=== PATIENT | female | born 1975 | race Hispanic/Latino ===

== ENCOUNTER 2017-01-05 15:06 | Observation (INO) | payer OTHER ==
[2017-01-05] VITALS (7 sets, daily range): BP systolic 103–136; BP diastolic 69–86; PULSE 100–131; RESP 9–22; O2SAT 99–100
[~2017-01-05] VITALS: Ht 165.1 cm; Wt 61.6 kg
[~2017-01-05 15:06] MED LIST: OMEP-113 PO
--- NOTE | 2017-01-05 15:36 | ED.REPORT ---
HPI-General Illness Date of Service January 05, 2017 ED Provider: Bert Landis MD Patient is a 41 year old female with a hx of depression and fibromyalgia who presents to the ED complaining of midline and left constant chest pain onset 5 days ago. Her pain is worse with inspiration. Associated symptoms include dry mouth. She denies nausea, vomiting, diaphoresis, shortness of breath, extremity pain, or any other symptoms. She has had intermittent chest pains for the past 5 months. Her pain started to get worse 5 days ago after an emotional event. She denies any recent surgeries or long periods of immobility. She has a stress test scheduled for tomorrow ordered by Dr. English. She is on naproxen (once every 10 days for pain), amitriptyline, and citalopram. Nursing Notes Stated Complaint: CHEST PAINS X 5 DAYS Chief Complaint: Dysrhythmia/Cardiac Nursing Notes Reviewed: Yes Allergies: Coded Allergies: No Known Allergies (Verified Allergy, Unknown, 01/05/17) Scheduled Alprazolam (Alprazolam) 0.25 Mg Tablet 0.25 MG PO HS Amitriptyline (Amitriptyline) 25 Mg Tab 25 MG PO HS Escitalopram Oxalate (Escitalopram Oxalate) 10 Mg Tablet 10 MG PO DAILY General Time Seen by MD: 15:35 Chief Complaint Chest pain Hx Obtained From: Patient, Medical Pathologist Arrived By: Walk-in Onset Occurred: 5 days ago Symptom Duration: Since onset Past Medical History Past Medical History Fibromyalgia Reports: Depression Past Surgical History T&A C-spine disc replacement Reports: , Hysterectomy Smoking History Current Every Day Smoker Ambulatory Status Independent Review of Systems + dry mouth Full Review of Systems Respiratory: Denies: Shortness of breath Cardiovascular: Reports: Chest pain GI: Denies: Nausea, Vomiting Musculoskeletal: Denies: Extremity pain Skin: Denies Diaphoresis Complete sys rev & neg: except as marked. Physical Exam Vital Signs Vital Signs Date Time Temp Pulse Resp B/P Pulse Ox O2 Delivery O2 Flow Rate FiO2 01/05/17 17:51 103 17 121/71 100 Nasal Cannula 2 01/05/17 16:55 119 9 136/77 100 Nasal Cannula 2 01/05/17 16:14 117 10 133/86 100 Nasal Cannula 2 01/05/17 15:10 36.3 131 21 120/76 99 Room Air Initial VS: Reviewed General/Constitutional: Well-developed, Well-nourished Head / Eyes: Atraumatic, Normocephalic Neck: Full range of motion Skin: Warm, Dry Neurologic: Alert, Oriented, Nonfocal Psychiatric: Mood/affect normal, Behavior normal, Normal thought content Mouth: Positive: Mucous membranes dry Respiratory / Chest: Breath sounds NL, Breath sounds = bilat, No respiratory distress reproducible tenderness about L anterior chest wall Cardiovascular: Heart sounds NL, No gallop, No murmurs, No rubs, Peripheral circulation NL Heart Rate / Rhythm: Positive: Tachycardia Abdomen: Soft, Non-tender, No distention Lower Extremity / Pelvis / MS: No swelling, Non-tender Interpretation & Diagnostics Lab Results Interpretation Result Diagram: 01/05/17 1530 01/05/17 1530 Test 01/05/17 15:30 White Blood Count 5.6th/mm3 (3.8-10.1) Red Blood Count 4.63mil/mm3 (3.90-5.20) Hemoglobin 14.2g/dL (12.0-15.6) Hematocrit 41.9% (35.0-46.0) Mean Corpuscular Volume 90.5fL (81-100) Mean Corpuscular Hemoglobin 30.7pg (27.0-35.0) Mean Corpuscular Hemoglobin Concent 33.9% (32.0-37.0) Red Cell Distribution Width 12.5% (12.3-15.4) Platelet Count 182bil/L (150-400) Neutrophils (%) (Auto) 61.2% (40-74) Lymphocytes (%) (Auto) 27.1% (14-46) Monocytes (%) (Auto) 10.8% (4-12) Eosinophils (%) (Auto) 0.7% (0-5) Basophils (%) (Auto) 0.2% (0-3) D-Dimer < 0.50mg/L FEU (<0.50) Sodium Level 135mEq/L (134-144) Potassium Level 3.9mEq/L (3.5-5.2) Chloride Level 99mEq/L (97-108) Carbon Dioxide Level 22mmol/L (18-29) Blood Urea Nitrogen 9mg/dL (6-24) Creatinine 0.68mg/dL (0.57-1.00) Estimat Glomerular Filtration Rate 135mL/min (>59) Glucose Level 103mg/dL (60-99) Calcium Level 9.0mg/dL (8.5-10.1) Magnesium Level 2.2mg/dL (1.6-2.6) Total Bilirubin 0.3mg/dL (0.0-1.2) Aspartate Amino Transf (AST/SGOT) 21U/L (0-50) Alanine Aminotransferase (ALT/SGPT) 26U/L (0-32) Alkaline Phosphatase 78U/L (25-150) Total Protein 8.4g/dL (6.4-8.4) Albumin 4.4g/dL (3.4-5.0) Human Chorionic Gonadotropin, Qual Negative (Negative) Hold Caldwell Top Tube Received (Received) ECG Interpretation ECG Interpretation: Sinus tachy rate 116 normal axis and interval no ST, T changes no prior available for comparison Time: 15:35 Interpreted by: ED physician X-Ray Chest Interpretation Chest Xray Interpretation: IMPRESSION: No acute disease Dictated by: Jose E Samuel M.D. on 01/05/2017 at 16:03 Approved by: Jose E Samuel M.D. on 01/05/2017 at 16:06 View: Portable, 1 view Interpretation / Wet Read by: Interpret - Radiologist Re-Eval/Medical Decision Med Decision/Clinical Course Patient is a 41 year old female with a hx of depression and fibromyalgia who presents to the ED complaining of midline and left constant chest pain onset 5 days ago. Her pain is worse with inspiration. Associated symptoms include dry mouth. She denies nausea, vomiting, diaphoresis, shortness of breath, extremity pain, or any other symptoms. She has had intermittent chest pains for the past 5 months. Her pain started to get worse 5 days ago after an emotional event. She denies any recent surgeries or long periods of immobility. She has a stress test scheduled for tomorrow ordered by Dr. English. She is on naproxen (once every 10 days for pain), amitriptyline, and citalopram. Upon arrival the patient is afebrile, hemodynamically stable and in no apparent distress. 324 mg of aspirin were given. EKG was obtained and interpreted by myself as documented above. Of note the patient had sinus tachycardia at a rate of 116 bpm though there were no acute ischemic changes present. CXR: Obtained, reviewed and interpreted by myself shows no evidence of infiltrates, effusions or pneumothorax. Cardiac and mediastinal silhouette normal. No bony or soft tissue abnormalities. Laboratory studies obtained as below: CBC unremarkable CMP unremarkable Troponin negative D-dimer negative Event that the patient's primary care physician recently ordered a stress test I opted to contact her PCP to discuss further. I spoke with the on-call physician Dr. Bourgeois and we reviewed the workup and presentation thus far. While my suspicion for acute coronary syndrome in this patient is relatively low the patient's primary care doctor would like him admitted to expedite stress test and definitively rule out acute coronary syndrome. Patient was discussed with admitting hospitalist and transferred in stable condition. Time of Eval: 17:30 Re-Evaluation/Progress Note: Discussed plan for admission. Patient understands and agrees with plan. All questions addressed at this time. Consultation #1: Referral / Consult Name: Ildefonso De Jesus MD Call Returned at: 17:26 Tire Cord Weaver: Agrees with eval, Agrees with plan Note: Discussed pt's case with Dr. De Jesus station inspector for Dr. English. Suggests admit. Consultation #2: Referral / Consult Name: Mau Jon DO Consulted With: Hospitalist Call Returned at: 18:02 Tire Cord Weaver: Will see patient, Agrees with eval, Agrees with plan, Accepts admit Note: Discussed pt. case. Accepts admit Counseled Regarding: Diagnosis, Lab results, Need for admission Discharge & Departure Primary Impression: Chest pain Chest pain type: unspecified Qualified Code: R07.9 - Chest pain, unspecified Additional Impressions: Fibromyalgia Anxiety Disposition: ADMITTED TO HOSPITAL Referrals: Erika English MD (PCP) Scribe Attestation Portions of this note were transcribed by Latonia Smith. I, Dr. Landis personally performed the history, physical exam and medical decision-making; I reviewed and confirmed the accuracy of the information in the transcribed note. Signed by: Latonia Smith 01/05/17, 7861 copies to: Erika English MD, Beck O MD January 05, 2017 15:36 LATONIA SMITH January 05, 2017 15:37
[2017-01-05] MEDS ORDERED: AMT25T PO (15:37)
[2017-01-05] MEDS ORDERED: ALPR0.254 PO (15:37)
[2017-01-05] MEDS ORDERED: ESCI10TA52 PO (15:37)
[2017-01-05 15:38] LABS: BASOPHILS % (AUTO) 0.2 % (0-3); EOSINOPHILS % (AUTO) 0.7 % (0-5); MONOCYTES % (AUTO) 10.8 % (4-12); Mean Corpuscular Hemoglobin 30.7 pg (27.0-35.0); Mean Corpuscular Volume 90.5 fL (81-100); NEUTROPHILS % (AUTO) 61.2 % (40-74); Platelet Count 182 bil/L (150-400)
--- NOTE | 2017-01-05 16:07 | DRSVH ---
PROCEDURE: X-RAY CHEST ONE VIEW, PORTABLE ([id number]) INDICATIONS: CP TECHNIQUE: One view of the chest was acquired. COMPARISON: None. FINDINGS: Surgical changes and devices: None. Lungs and pleura: No pleural effusions or pneumothorax. Lungs are clear. Mediastinum: Mediastinal contours appear normal. Heart size is normal. Bones and chest wall: No suspicious bony lesions. Overlying soft tissues appear unremarkable. IMPRESSION: No acute disease Dictated by: Jose E Samuel M.D. on 01/05/2017 at 16:03 Approved by: Jose E Samuel M.D. on 01/05/2017 at 16:06
[2017-01-05 16:15] LABS: Magnesium 2.2 mg/dL (1.6-2.6); TROPONIN T < 0.010 ug/L (0.0-0.011)
[2017-01-05] MEDS ORDERED: 0.9% Sodium Chloride 1,000 ML IV ONE ×2 (16:55→17:10)
[2017-01-05] MEDS ORDERED: 0.9% Sodium Chloride 1,000 ML IV SCH (18:03)
[2017-01-05] MEDS ORDERED: Ondansetron 2 mg/mL 2 mL Inj IVPUSH PRN ×2 (18:05)
[2017-01-05] MEDS ORDERED: Alum-Mag Hydrox-Simeth 30 mL Suspension PO PRN ×2 (18:05)
[2017-01-05] MEDS ORDERED: Polyethylene Glycol (PEG) 17 Gm Powder PO PRN (18:05)
--- NOTE | 2017-01-05 18:50 | PCM.HPMED ---
Subjective Date of Service January 05, 2017 Primary Provider: Admitting Physician: Mau Jon DO Primary Care Physician: Erika English MD Attending Physician: Mau Jon DO Chief Complaint: Persistent chest pain History of Present Illness: Patient is a 41-year-old female past medical history significant for mood disorder anxiety and depressive components in addition to possible fibromyalgia presenting to the ER today for left-sided chest pain of approximately 5 day duration. Lesion first began experiencing chest pain around August of last year and notes it is coming on intermittently but over the last 5 days it is been more severe and more persistent. she notes emotional feelings including stress are generally exacerbating, denies any exertional component. Neither any recent fever chills. He also denies shortness of breath. As any dizziness or lightheadedness associated with the chest pains. Chest pain is severe and sharp in nature but not radiating. Takes a few medications for mood but denies any other active medication prescriptions. Her only additional complaint at this time is a dry mouth. Note appetite has been good she is eating and drinking normally. Endorses normal bowel and bladder function though she did note an episode of polyuria couple of weeks prior, resolved spontaneously. Denies any history of pain with urination however. When seen in ER she was provided sublingual nitroglycerin in addition to other when necessary medications for pain including aspirin which were not effective in controlling pain. EKG was unremarkable and there are no other significant findings noted on laboratory evaluation. She has been followed in the outpatient setting by her primary care doctor, Dr. English, she had been scheduled an outpatient stress test tomorrow. Given severity of chest pain felt she needed to present to ER sooner. Review of Systems: 10 point review of systems was conducted and entirely negative excepting pertinent positives and negatives included in above history of present illness Allergies Coded Allergies: No Known Allergies (Verified Allergy, Unknown, 01/05/17) Home Medications Alprazolam (Alprazolam) 0.25 Mg Tablet 0.25 MG PO HS Amitriptyline (Amitriptyline) 25 Mg Tab 25 MG PO HS Escitalopram Oxalate (Escitalopram Oxalate) 10 Mg Tablet 10 MG PO DAILY PMH Anxiety Fibromyalgia Depression Surgical History T&A Sinus surgery C-spine disc replacement Hysterectomy Family History Patient notes mother does have some history of cardiac disease, she is unclear what the diagnosis is She knows her mother sometimes has an elevated pulse and needs to get EKGs every couple of months. Also notes mother and father have high blood pressure Social History Hx Alcohol Use: No Hx Substance Use: No Smoking Status: Current Every Day Smoker Exam Vital Signs Vital Sign - Last Date Time Temp Pulse Resp B/P Pulse Ox O2 Delivery O2 Flow Rate FiO2 01/05/17 17:51 103 17 121/71 100 Nasal Cannula 2 01/05/17 15:10 36.3 General: Alert, Oriented X3, Cooperative, Mild Distress, Other (anxious) Eyes: PERRLA, EOMI Mouth: Mucous Membr Moist/Oran Neck: Supple, No Thyromegaly Chest & Lungs: Clear to auscultation & percussion, Other (no pain noted on palpation of chest wall) Cardiovascular: Other (there is no elevated rate with a regular rhythm. No murmurs rubs or gallops) Abdomen: Non-tender, Non-distended Extremities: No cyanosis/clubbing/edma bilat Neurological: Grossly Neurologically Intact Lab and Diagnostics Result Diagram: 01/05/17 1530 01/05/17 1530 Assessment & Plan A 41-year-old female past medical history significant for anxiety spectrum disorder in addition to depression presenting to ER for persistent chest pain and placed on observation for further evaluation 1. Chest pain observation - Given lack of risk factors excepting smoking, in addition to patient's age and normal EKG conjunction with negative troponin values thus far, it seems unlikely that patient suffered from acute coronary syndrome. - Nonetheless given location of pain in severity further evaluation is needed to rule out possible coronary involvement. Patient's persistent tachycardia as well as concern - Patient will be observed on continuous telemetry - When necessary medications will be provided for pain - Complete echocardiogram and exercise stress test are ordered for a.m. - In addition we will continue to trend troponin values 2. Mood disorder - There may be an emotional component to patient's chest pain, especially given history that emotional stress appears to be a triggering factor. - We will continue patient's home medications at this time with amitriptyline, SSRI, benzodiazepine when necessary - Would recommend continued outpatient therapy for further evaluation and treatment is disease. 3. Tachycardia - As noted in problem 1 will monitor and continuous on treating continue cardiac evaluation -There may well be an emotional component to this given patient's high level of stress, though we first should rule out underlying condition before assuming - Negative d-dimer and normal oxygen saturation is reassuring, and essentially rules out pulmonary embolus. Pain Evaluation: Adequate Pain Control GI Prophylaxis: Not indicated VTE Mechanical Devices: Intermittant Pneumatic CD Resuscitation Status: CPR: Attempt Resuscitation Time spent 50 minutes Mau Jon DO January 05, 2017 18:50
[2017-01-05] MEDS ORDERED: LORazepam 1 mg Tablet PO PRN (19:00)
[2017-01-05 19:10] LABS: TROPONIN T < 0.010 ug/L (0.0-0.011)
--- NOTE | 2017-01-05 19:19 | NUR ---
Arrival to [facility] [place] Rm 3020 1836pm pt arrived to [facility] [place] Rm 3020; A&Ox3, able to SHEETS, transferred from gurney to bed by sliding with minimal assistance; mostly Brazilian speaking but able to express thoughts verbally with small amounts of Brazilian and [place]erratian, VSS, HR 104, c/o "CP 2/10 per pt and very tolerable and only when I breath." Did not want medication when offered by RN for pain. IV SL, started NS 80mls/hr and put on 2L O2 NC. Pt requested warm blanket provided and tucked into bed. Blouse, boots and belt put in pt closet in room, Benefits Coordinator purse and cell phone at bedside; pt in bluejeans when tucked into bed. Tomorrow's procedure explained to pt with help of stick java front end web developer and pt able to express she had not been able to buy pants for tomorrow's stress test; reiterated for pt to not worry about this. NAC brought stick java front end web developer to bedside and started admit questions with belongings. Report given to NOC nurse.
[2017-01-05] MEDS: 0.9% Sodium Chloride 1,000 ML IV SCH (19:49)
[2017-01-06] MEDS: Sodium Chloride LOK Flush 10 mL Syringe IVFLUSH SCH ×2 (00:30→08:30)
[2017-01-06 01:33] VITALS: BP 118/78; PULSE 99; RESP 20; O2SAT 99
--- NOTE | 2017-01-06 05:16 | NUR ---
Chest pain At the beginning of the shift, Pt c/o chest pain/pressure 2/10 with deep breathing,triggered by anxiety or sadness,not triggered by ambulation. Chest pain location at at left precordial area,no radiation. Denies accompanying symptoms dyspnea or diaphoresis. Nitroglycerin 0.4MG SL administered at pm, chest pain down to 1/10 in about 5min after Nitro,but developed side effect of headache 6/10, then resolved after stop Nitro. CP resolved since around 2200, sleeping comfortably overnight. Tele: SR-ST 90S-100S no ST-T changes per vehicle monitor technician. Troponin all (-). Pt is kept NPO after MN for stress test today 01/06, last drink coffee at yesterday morning. Addendum: 01/06/17 at 0527 by MYLES LOPEZ RN Ukrainian speaking pt, video tool and die assembler Elena ID:[id number].
[2017-01-06 05:58] LABS: BASOPHILS % (AUTO) 0.5 % (0-3); EOSINOPHILS % (AUTO) 1.9 % (0-5); MONOCYTES % (AUTO) 11.9 % (4-12); Mean Corpuscular Hemoglobin 30.6 pg (27.0-35.0); NEUTROPHILS % (AUTO) 50.8 % (40-74); Platelet Count 146 bil/L (150-400)
[2017-01-06] MEDS: 0.9% Sodium Chloride 1,000 ML IV SCH (06:03)
[2017-01-06 06:16] VITALS: BP 109/73; PULSE 96; RESP 20; O2SAT 100
[2017-01-06 06:26] VITALS: PULSE 111
[2017-01-06 07:46] VITALS: PULSE 103
[2017-01-06 07:47] VITALS: BP 116/79; PULSE 94; RESP 20; O2SAT 100
--- NOTE | 2017-01-06 09:17 | NUR ---
Social Work: Screening Data: Pt is a 41 y/o female admitted for chest pains. Pt's PCP is Dr English, pt's insurance is [employer]. EMR reviewed. Readmit score is 1, low. No d/c planning needs anticipated at this time. AREA DEVELOPMENT CONSULTANT will continue to follow if needs arise. Assessment: Pt who is independent at baseline. Plan: Pt will d/c home via POV when medically stable. AREA DEVELOPMENT CONSULTANT will continue to follow if needs arise. GINETTE Martinez
--- NOTE | 2017-01-06 12:49 | DRSVH ---
PROCEDURE: EITHER REST OR STRESS ONLY Exercise myocardial perfusion SPECT with gated imaging and ejection fraction RADIOPHARMACEUTICAL: 21 mCi Tc-99m tetrafosmin IV at peak exercise. INDICATIONS: 5 days of persistent chest pain. TECHNIQUE: Radiopharmaceutical was injected at peak stress test. SPECT images were obtained, with p erfusion images in short axis, horizontal long axis, and vertical long axis views. Gated images were reviewed using [facility] software. COMPARISON: None. CARDIAC STRESS: A standard [place] treadmill exercise tolerance test was performed by the patient under the supervision of an attending staff. The patient exercised for 6 minutes and 25 seconds; functional aerobic impai rment (JOE) is 24 %. Hemodynamic data: There is normal blood pressure and heart response to exercise. Patient achieved 1 01% of maximum predicted heart rate. Symptoms: Patient reported 5-6/10 chest discomfort at peak exertion. EKG: No diagnostic changes of ischemia; no ectopy. FINDINGS: Raw data: There is good labeling of myocardium by radiotracer. No significant motion artifacts. Left ventricular function: Gated images demonstrate normal left ventricle wall thickening. No segme ntal wall motion abnormalities. Left ventricle end diastolic volume is 31 mL. Left ventricle stress ejection fraction is >70% ; normal values are above 45%. Myocardial perfusion: No focal perfusion defects are identified. IMPRESSION: 1. Appropriate hemodynamic response to exercise. 2. The patient reported chest discomfort at peak exercise (clinical correlation recommended). There were no diagnostic ECG changes with exercise. 3. No scintigraphic evidence for significant areas of myocardial ischemia at the level of stress achi eved. 4. Lower limits of normal ventricular size with normal systolic function. Dictated by: Evelyn Perez M.D. on 01/06/2017 at 12:41 Approved by: Evelyn Perez M.D. on 01/06/2017 at 12:48
[2017-01-06 13:15] VITALS: BP 108/74; PULSE 116; RESP 20; O2SAT 99
--- NOTE | 2017-01-06 15:57 | PCM.DIMED ---
Discharge Instructions Date of Service January 06, 2017 Dates of Hospitalization January 05, 2017 at 18:17 Discharge Diagnosis Discharge Diagnosis 1. Chest pain observation; ACS ruled out. - Cause is not clear, but coronary artery disease is very unlikely based on studies/tests obtained in hospital. 2. Mood disorder/ Anxiety spectrum- Continue current medications. May consider behaviour therapy in addition which may help with anxiety/stress, which could contribute to symptoms of chest pressure and pain. 3. Tachycardia- intermittent. Stable on discharge. Diet No restrictions Activity No restrictions Call your provider Fever or Chills, Shortness of breath, Chest pain Patient Instructions No changes advised at this time. Follow up with your primary care doctor in 1 - 2 weeks to consider further options for evaluation and treatment. Follow-up Provider: Erika English MD Follow-up with PCP in: 1 week Mau Jon DO January 06, 2017 15:57
--- NOTE | 2017-01-06 16:27 | PCM.DC.MED ---
Discharge Summary Date of Service January 06, 2017 Dates of Hospitalization Date of Hospital Admission January 05, 2017 at 18:17 Date of Discharge: January 06, 2017 Providers: Admitting Physician: Mau Jon DO Primary Care Physician: Erika English MD Attending Physician: Mau Jon DO Diagnosis at Time of Discharge Diagnosis at Time of Discharge 1. Chest pain observation; ACS ruled out. - Cause is not clear, but coronary artery disease is very unlikely based on studies/tests obtained in hospital. 2. Mood disorder/ Anxiety spectrum- Continue current medications. May consider behaviour therapy in addition which may help with anxiety/stress, which could contribute to symptoms of chest pressure and pain. 3. Tachycardia- intermittent. Stable on discharge. Procedures Other Diagnostics PROCEDURE: EITHER REST OR STRESS ONLY Exercise myocardial perfusion SPECT with gated imaging and ejection fraction RADIOPHARMACEUTICAL: 21 mCi Tc-99m tetrafosmin IV at peak exercise. INDICATIONS: 5 days of persistent chest pain. TECHNIQUE: Radiopharmaceutical was injected at peak stress test. SPECT images were obtained, with perfusion images in short axis, horizontal long axis, and vertical long axis views. Gated images were reviewed using [employer] software. COMPARISON: None. CARDIAC STRESS: A standard [place] treadmill exercise tolerance test was performed by the patient under the supervision of an attending staff. The patient exercised for 6 minutes and 25 seconds; functional aerobic impairment (JOE) is 24 %. Hemodynamic data: There is normal blood pressure and heart response to exercise. Patient achieved 101% of maximum predicted heart rate. Symptoms: Patient reported 5-6/10 chest discomfort at peak exertion. EKG: No diagnostic changes of ischemia; no ectopy. FINDINGS: Raw data: There is good labeling of myocardium by radiotracer. No significant motion artifacts. Left ventricular function: Gated images demonstrate normal left ventricle wall thickening. No segmental wall motion abnormalities. Left ventricle end diastolic volume is 31 mL. Left ventricle stress ejection fraction is >70% ; normal values are above 45%. Myocardial perfusion: No focal perfusion defects are identified. IMPRESSION: 1. Appropriate hemodynamic response to exercise. 2. The patient reported chest discomfort at peak exercise (clinical correlation recommended). There were no diagnostic ECG changes with exercise. 3. No scintigraphic evidence for significant areas of myocardial ischemia at the level of stress achieved. 4. Lower limits of normal ventricular size with normal systolic function. Dictated by: Evelyn Perez M.D. on 01/06/2017 at 12:41 Brief History Patient is a 41-year-old female past medical history significant for mood disorder anxiety and depressive components in addition to possible fibromyalgia presenting to the ER today for left-sided chest pain of approximately 5 day duration. Lesion first began experiencing chest pain around August of last year and notes it is coming on intermittently but over the last 5 days it is been more severe and more persistent. she notes emotional feelings including stress are generally exacerbating, denies any exertional component. Neither any recent fever chills. He also denies shortness of breath. As any dizziness or lightheadedness associated with the chest pains. Chest pain is severe and sharp in nature but not radiating. Takes a few medications for mood but denies any other active medication prescriptions. Her only additional complaint at this time is a dry mouth. Note appetite has been good she is eating and drinking normally. Endorses normal bowel and bladder function though she did note an episode of polyuria couple of weeks prior, resolved spontaneously. Denies any history of pain with urination however. When seen in ER she was provided sublingual nitroglycerin in addition to other when necessary medications for pain including aspirin which were not effective in controlling pain. EKG was unremarkable and there are no other significant findings noted on laboratory evaluation. She has been followed in the outpatient setting by her primary care doctor, Dr. English, she had been scheduled an outpatient stress test tomorrow. Given severity of chest pain felt she needed to present to ER sooner. Hospital Course 1. Chest pain observation- oh patient had no significant risk factors for acute coronary syndrome, persistent chest pain coupled with intermittent tachycardia improved enough for concern to prompt continued hospital observation , and conduct stress test previously scheduled in outpatient setting. Patient was monitored on telemetry overnight and aside from demonstrating intermittent episodes of sinus tachycardia showed no abnormal findings. Her chest pains appeared to wax and wane most closely associated with emotional stress which she herself endorsed, never appearing to correlate with physical activity. Treadmill stress test was conducted and the patient was experiencing chest pain during the study there were no EKG changes significant with coronary ischemia. Furthermore chest pain and was not acutely exacerbated with the effort on treadmill rather more chronic and stable. No times at [place]. Shortness of breath and did not have a hard time obtaining maximum exertional capacity. Her pauses will remain negative and given reassuring EKG in conjunction with all additional findings he was thought to be safe to discharge home with plan to follow-up with primary care physician to consider further evaluation from this point. Echocardiogram had initially been considered, however this was deferred outpatient consideration given otherwise normal findings, which patient was in agreement with. 2. Mood disorder- though this certainly may not be the sole cause I do believe patient's poorly controlled anxiety may be playing a role in her persistent chest pains and pressures. She is certainly a very strongly emotional person who feels things very strongly, and in addition patient's chest pain typically seem to correlate with stressful motions or conversations on the phone. She is being treated with some medications for mood spectrum disorder, may also consider behavioral therapy meditation and breathing exercises to additionally help in control of this serious condition. This is deferred to the outpatient setting patient instructed to continue all medications at this time as previously prescribed. 3. Tachycardia- this condition was intermittent, seem to relax with patient's mood, and was certainly exacerbated with strong emotions and increased anxiety. MAXIMUM TEMPERATURE on hospital floor was never above the 110s, and there was never any demonstration of hypoxia or hemodynamic instability associated with this elevated rate. D-dimer obtained in ER was normal as was chest x-ray, making pulmonary embolus, which would appear to be the most likely cardiovascular cause of tachycardia now on this patient's age, essentially ruled out. Exam Vital Signs (Last) Date Time Temp Pulse Resp B/P Pulse Ox O2 Delivery O2 Flow Rate FiO2 01/06/17 13:15 36.8 116 20 108/74 99 Room Air 01/06/17 07:47 2.00 Exam Patient was lying in bed, he assured by results which also appeared to improve heart function. Also is of regular rhythm during my evaluation. Focal neurologic exam. Was breathing comfortably while lying in hospital bed. Test 01/05/17 15:30 01/05/17 18:32 01/06/17 00:10 01/06/17 05:05 D-Dimer < 0.50mg/L FEU (<0.50) Magnesium Level 2.2mg/dL (1.6-2.6) Total Bilirubin 0.3mg/dL (0.0-1.2) Aspartate Amino Transf (AST/SGOT) 21U/L (0-50) Alanine Aminotransferase (ALT/SGPT) 26U/L (0-32) Alkaline Phosphatase 78U/L (25-150) Total Protein 8.4g/dL (6.4-8.4) Albumin 4.4g/dL (3.4-5.0) Human Chorionic Gonadotropin, Qual Negative (Negative) Hold [place] Top Tube Received (Received) Thyroid Stimulating Hormone (TSH) 0.561uIU/mL (0.450-4.500) Troponin T 0.010ug/L (0.0-0.011) White Blood Count 4.3th/mm3 (3.8-10.1) Red Blood Count 3.99mil/mm3 (3.90-5.20) Hemoglobin 12.2g/dL (12.0-15.6) Hematocrit 37.1% (35.0-46.0) Mean Corpuscular Volume 93.0fL (81-100) Mean Corpuscular Hemoglobin 30.6pg (27.0-35.0) Mean Corpuscular Hemoglobin Concent 32.9% (32.0-37.0) Red Cell Distribution Width 12.8% (12.3-15.4) Platelet Count 146bil/L (150-400) Neutrophils (%) (Auto) 50.8% (40-74) Lymphocytes (%) (Auto) 34.7% (14-46) Monocytes (%) (Auto) 11.9% (4-12) Eosinophils (%) (Auto) 1.9% (0-5) Basophils (%) (Auto) 0.5% (0-3) Sodium Level 141mEq/L (134-144) Potassium Level 4.7mEq/L (3.5-5.2) Chloride Level 107mEq/L (97-108) Carbon Dioxide Level 23mmol/L (18-29) Blood Urea Nitrogen 10mg/dL (6-24) Creatinine 0.49mg/dL (0.57-1.00) Estimat Glomerular Filtration Rate 197mL/min (>59) Glucose Level 90mg/dL (60-99) Calcium Level 8.4mg/dL (8.5-10.1) Triglycerides Level 95mg/dL (0-149) Cholesterol Level 123mg/dL (100-199) LDL Cholesterol, Calculated 72.000mg/dL (0-99) VLDL Cholesterol 19.000mg/dL HDL Cholesterol 32mg/dL (>39) Cholesterol/HDL Ratio 3.84 (0.0-4.4) Discharge Medications Discharge Medications Alprazolam (Alprazolam) 0.25 Mg Tablet 0.25 MG PO HS (Reported) Amitriptyline (Amitriptyline) 25 Mg Tab 25 MG PO HS (Reported) Escitalopram Oxalate (Escitalopram Oxalate) 10 Mg Tablet 10 MG PO DAILY ( Reported) Followup Plan Disposition: Home with sister Discharge Diet: No restrictions Discharge Activity: No restrictions Patient Instructions No changes advised at this time. Follow up with your primary care doctor in 1 - 2 weeks to consider further options for evaluation and treatment. Follow-up Provider: Erika English MD Follow-up with PCP in: 1 week Time spent 55 minutes copies to: Erika English MD, Benjamin P DO January 06, 2017 16:27
--- NOTE | 2017-01-06 16:30 | NUR ---
Pt discharge Pt discharged home via POV and one person attending F/U with Dr. English for ECHO if Dr. English
== END 2017-01-06 16:35 | disposition home or self-care (01) ==
LOC: SED 15:06 → MPC 18:17 → INTOOBSV 18:17
PROVIDERS: ADMIT Family Medicine; ATTEND Family Medicine
DX: R07.9 Chest pain, unspecified (principal); F39 Unspecified mood [affective] disorder; F41.9 Anxiety disorder, unspecified; R00.0 Tachycardia, unspecified; M79.7 Fibromyalgia; F32.9 Major depressive disorder, single episode, unspecified; F17.210 Nicotine dependence, cigarettes, uncomplicated; Z90.710 Acquired absence of both cervix and uterus
CPT/HCPCS: 36415; 71010; 78451; 80048; 80053; 80061; 83735; 84443; 84484; 84703; 85025; 85378; 93005; 93017; 96361; 96374; 99285; A9502; J2060; J7030